=== PATIENT | female | born 1985 | race Caucasian/White ===

== ENCOUNTER 2018-04-17 22:52 | Emergency (ER) | payer BC ==
[2018-04-17 23:03] VITALS: TEMP 100.7
[2018-04-17] MEDS ORDERED: ACETAMINOPHEN 325 MG PO ONE (23:21)
[2018-04-17] MEDS ORDERED: SODIUM CHLORIDE 0.9% 1000ML 1,000 ML IV ONE (23:21)
[2018-04-17] MEDS ORDERED: ACETAMINOPHEN 325 MG ONE (23:26)
[2018-04-17 23:50] LABS: BASOPHILS % (AUTO) 1 % (0-3); EOSINOPHILS % (AUTO) 0 % (0-9); HEMATOCRIT 42 % (35-47); LACTIC ACID 1.3 mMol/L (0.0-2.0); LYMPHOCYTES % (AUTO) 8.6 % (10-50); MEAN CORPUSCULAR HEMOGLOBIN 28.4 pg (27.0-32.0); MEAN CORPUSCULAR HGB CONC 33.1 gm/dl (32.0-36.0); MEAN CORPUSCULAR VOLUME 86 fL (81-99); MONOCYTES % (AUTO) 4.3 % (0-12); NEUTROPHILS % (AUTO) 86.3 % (37-80)
[2018-04-17 23:57] LABS: CALCIUM 8.6 mg/dl (8.5-10.1); CARBON DIOXIDE 27.8 mEq/L (21-32); CREATININE 1.08 mg/dl (0.60-1.00); POTASSIUM 3.3 mMol/L (3.5-5.1)
[2018-04-18] MEDS ORDERED: LEVOFLOXACIN 25 MG/ML 750 MG in SODIUM CHLORIDE 0.9% 250 ML 150 ML IV ONE (00:05)
[2018-04-18] MEDS ORDERED: LEVOFLOXACIN 25 MG/ML SOL IV ONE (00:11)
[2018-04-18 00:14] LABS: INFLUENZA A NEGATIVE (NEGATIVE); INFLUENZA B NEGATIVE (NEGATIVE)
[2018-04-18 00:52] LABS: APPEARANCE,URINE Clear; BILIRUBIN,URINE NEGATIVE (NEGATIVE); COLOR,URINE Yellow; GLUCOSE, URINE (UA) NEGATIVE (NEGATIVE); KETONES,URINE NEGATIVE (NEGATIVE); LEUKOCYTE ESTERASE ,URINE NEGATIVE (NEGATIVE); NITRATE,URINE NEGATIVE (NEGATIVE); OCCULT BLOOD,URINE TRACE LYSED (NEG-TRACE)
[2018-04-18 00:56] LABS: WBC,URINE 0-2 (0-5AV/HPF)
[2018-04-18 00:57] LABS: BACTERIA 1+ (< 1+); CRYSTALS NEGATIVE (0-3 AVE/HPF)
[2018-04-18 04:28] VITALS: BP 121/79; PULSE 119; RESP 20; O2SAT 98
== END 2018-04-18 02:48 | disposition home or self-care (01) ==
LOC: ED 22:52
DX: J18.9 Pneumonia, unspecified organism (principal)
CPT/HCPCS: 36415; 71045; 80048; 81001; 85025; 87040; 87430; 87804; 96365; 96366; 99070; 99283; 99284; J1956